=== PATIENT | male | born 1930 | race Caucasian/White ===

== ENCOUNTER 2016-08-18 19:55 | Inpatient (IN) | payer MEDICARE, MEDICAID, OTHER ==
[~2016-08-18] VITALS: Ht 172.7 cm; Wt 66.9 kg
--- NOTE | ~2016-08-18 | CON ---
PATIENT'S NAME: NATHALIE ESCALANTE [facility] AGE: 86 Y [address] ROOM: [place] [address] LOCATION: GPCU ADMIT DATE: 08/18/2016 Consultation DISCHARGE DATE: FAMILY PHYSICIAN: Kvng Heredia PA-C ATTENDING PHYSICIAN: GERHARD MCQUEEN DATE OF CONSULTATION: 08/19/[address] Mcqueen: Thank you for asking me to see Mr. Escalante who is an 86-year-old male patient, who had an accidental fall and fractured his left hip. He is supposed to on surgery for tumor today. He has no history of chest pain, shortness of breath, lightheadedness, dizziness, syncope or presyncope, palpitations, or ankle swelling. The patient has significant Parkinson disease and he lives at assisted living at [facility]. He walks with a walker and can walk at best half a block and rest with his walker. He has no other structured exercise program at this point. He has had a stent put in in 2001 and had a bypass grafting done in 2001 after that. The patient has history of tobacco abuse which he quit in the past, hypertension, hyperlipidemia, and no significant family history of premature coronary artery disease. He was told he had an OR, even though he was not aware of it. He has no history of rheumatic fever or heart murmur. He has never been told of congestive heart failure, but has history of atrial fibrillation. The patient has significant COPD and uses O2 2 L off and on. He does not have sleep apnea as far as he can tell. MEDICATIONS: His current list of medications are, 1. Tylenol. 2. Allopurinol. 3. Maalox. 4. Cepacol. 5. Calcium and vitamin D. 6. Diclofenac local topically. 7. Cymbalta 60 mg. 8. Lexapro 10 mg. 9. Fentanyl patch. 10. Flonase. PATIENT'S NAME: NATHALIE ESCALANTE [facility] AGE: 86 Y [address] ROOM: [place] [address] LOCATION: GPCU ADMIT DATE: 08/18/2016 Consultation DISCHARGE DATE: FAMILY PHYSICIAN: Kvng Heredia PA-C ATTENDING PHYSICIAN: GERHARD MCQUEEN 11. Guaifenesin. 12. Iron tablet. 13. Imodium. 14. Milk of magnesia. 15. Multivitamin. 16. Omeprazole 20 mg daily. 17. Zofran. 18. Oxygen 1-2 L. 19. Percocet. 20. Protonix. 21. Potassium. 22. Betadine. 23. Phenergan. 24. Ropinirole. 25. Senexon. 26. Silodosin. 27. Bactrim three days a week. 28. Triamcinolone. ALLERGIES: IODINE, CONTRAST, PREDNISONE, DOPAMINE, AND REGLAN. HE USED TO BE ON COUMADIN, IT HAS BEEN DISCONTINUED. PAST MEDICAL HISTORY: 1. COPD. 2. Gastroesophageal reflux disease. 3. Peptic ulcer disease. 4. Parkinson disease. 5. Gout. 6. DJD. SOCIAL HISTORY: The patient lives in assisted living facility. Denies abusing alcohol. He has been losing weight slowly. FAMILY HISTORY: No premature coronary artery disease. REVIEW OF SYSTEMS: A 12-point review of systems reveals fatigued and sleepiness are the only two other major symptoms he has. PHYSICAL EXAMINATION: VITAL SIGNS: On examination, his blood pressure now is 140/75, heart rate is 80s and appears to be regular at this time, respiration is 16. PATIENT'S NAME: NATHALIE ESCALANTE [facility] AGE: 86 Y [address] ROOM: [id number] [place] [id number] [facility] ADMIT DATE: 08/18/2016 Consultation DISCHARGE DATE: FAMILY PHYSICIAN: Kvng Heredia PA-C ATTENDING PHYSICIAN: GERHARD MCQUEEN HEENT: Normal. NECK: Supple with no JVD, thyromegaly, lymphadenopathy, or carotid bruit. PMI is not well located. First and second heart sounds fairly regular now. CHEST: Clear to auscultation. He has no edema. CENTRAL NERVOUS SYSTEM: Intact. ASSESSMENT: An 86-year-old male patient with known coronary artery disease status post coronary artery bypass grafting almost 15 years ago. He has a history of atrial fibrillation. Currently, his EKG suggests regular sinus rhythm with a heart rate in the 100s almost. He has no history of congestive heart failure. He is awaiting intermediate risk surgery with the risk of 4-7% chance of having significant morbidity and mortality. His risk is ennoble at this time because his functional capacity is less than 4 METS. Given the urgent nature of the surgery, I will discuss this with Dr. Hill and see what his plans are and if there is going to be a few days time available, we will do a stress test to stratify his risk better, even though correcting his risk as well as coronary artery disease concern back towards normal will considerably postpone his surgery which is probably not a good idea. MD ALANA WEBER/edwin /[id number] d: 08/19/16 1437 t: 08/28/16 1234, CONSULTATION REPORT
--- NOTE | ~2016-08-18 | CON ---
PATIENT'S NAME: NATHALIE BRENNAN [facility] AGE: 86 Y [address] ROOM: [place] [address] LOCATION: GPCU ADMIT DATE: 08/18/2016 Consultation DISCHARGE DATE: FAMILY PHYSICIAN: Kvng Heredia PA-C ATTENDING PHYSICIAN: GERHARD MCQUEEN Dr. has requested that I provide an inpatient consultation on this 86- year-old male, who was admitted through the emergency room last night with a left hip fracture. The patient's family requested that I care for him based upon the fact that I treated him for a contralateral hip fracture a few years ago. The patient resides at [facility]. His daughter is present. She is his power of front desk representative. He denies history of left hip pain prior to tripping and falling on his way to the bathroom last evening. At baseline, he spends most of his time in a wheelchair, but sometimes transfers without assistance (using a walker). He states he has no significant pain in his contralateral hip. The patient has been evaluated by Dr. Duncan (Cardiology). He was placed on an amiodarone drip. Dr. Duncan has emphasized the patient is at high cardiac risk (but that there are no modifiable cardiac risk factors in the short or intermediate term). PRESENT MEDICATIONS: 1. Imodium. 2. Calcium and vitamin D supplements. 3. Flonase. 4. Guaifenesin. 5. Rapaflo. 6. Prilosec. 7. Niferex. 8. Tylenol. 9. Nasal cannula oxygen. 10. Zofran. 11. Phenergan. 12. Requip. 13. Voltaren gel. 14. Lexapro. 15. Zyloprim. 16. Potassium supplement. 17. Bactrim. 18. Oxycodone. 19. Fentanyl patch. 20. Cymbalta. ALLERGIES: INTRAVENOUS CONTRAST DYE, PREDNISONE, DOPAMINE, AND REGLAN. PATIENT'S NAME: NATHALIE BRENNAN [facility] AGE: 86 Y [address] ROOM: [place] [address] LOCATION: GPCU ADMIT DATE: 08/18/2016 Consultation DISCHARGE DATE: FAMILY PHYSICIAN: Kvng Heredia PA-C ATTENDING PHYSICIAN: GERHARD MCQUEEN REVIEW OF SYSTEMS: He denies chest pain. There is no increased shortness of breath versus baseline. No history of deep venous thrombosis. He denies pain elsewhere as a result of the fall. ACTIVE MEDICAL PROBLEMS: Atrial fibrillation and extensive cardiac history (as specified in the Cardiology consultation note from Dr. Duncan). PAST SURGICAL HISTORY: Open reduction and internal fixation of right hip intertrochanteric fracture. PHYSICAL EXAMINATION: GENERAL: Alert, oriented, very slender, very frail, lethargic male. RESPIRATIONS: Nonlabored. MUSCULOSKELETAL: There is pain with passive range of motion of his left hip. There is no pain with passive range of motion of his right hip. There are no active skin lesions or masses in either lower extremity. He is able to actively dorsiflex and plantar flex the left ankle weekly. There is no pain with gentle passive range of motion of the right hip. RADIOGRAPHS: AP pelvis as well as AP and lateral radiographs of the left hip demonstrate a basicervical proximal femur fracture. There is a well-fixed gamma nail construct on the right (transfixing a healed intertrochanteric fracture). There is extensive calcification of the femoral arteries bilaterally. There is no hardware or lytic lesion in the left hip. There is significant generalized osteopenia. IMPRESSION: Left hip basicervical-intertrochanteric fracture. Healed right hip intertrochanteric fracture. Multiple medical comorbidities. Extremely frail compromised baseline medical status. intermediate patient. RECOMMENDATIONS: I have reviewed operative and nonoperative options with the patient and with his daughter. I had an extensive discussion with the patient's daughter by phone last evening. I discussed operative and nonoperative options. I have recommended open reduction and internal fixation. I have discussed potential risks and limitations of surgery as well as potential adverse sequelae of the injury itself. We have specifically discussed the potential for infection, deep venous thrombosis, pulmonary embolism, mortality, malunion, nonunion, neurovascular complications, blood transfusion risks, as well as the potential need for further surgery. The patient and his daughter are well-acquainted PATIENT'S NAME: NATHALIE BRENNAN [facility] AGE: 86 Y [address] ROOM: [place] [address] [facility] ADMIT DATE: 08/18/2016 Consultation DISCHARGE DATE: FAMILY PHYSICIAN: Kvng Heredia PA-C ATTENDING PHYSICIAN: GERHARD MCQUEEN with the issues at hand (having been through a virtually identical situation on the contralateral side). I emphasized to the patient's daughter that he is extremely frail (from a medical standpoint). I have shared with her that the bank consultant has stated that there is a 5% to 10% chance of mortality. She is willing to accept this risk. She understands his prognosis is extremely poor without surgery. Informed consent has been granted. The patient was placed at bedrest last evening. Mechanical DVT prophylaxis and incentive spirometry were initiated last evening (at my request). MD ARIA HERNANDEZ/edwin /[id number] d: 08/19/16 1805 t: 08/21/16 0753, CONSULTATION REPORT
--- NOTE | ~2016-08-18 | OR ---
PATIENT'S NAME: NATHALIE BRENNAN [facility] AGE: 86 Y [address] ROOM: [place] [address] LOCATION: GPCU ADMIT DATE: 08/18/2016 OR/Procedure Report DISCHARGE DATE: FAMILY PHYSICIAN: Kvng Heredia PA-C ATTENDING PHYSICIAN: GERHARD MCQUEEN SURGEON: Cb Hill MD BIT TRIPOLER: DATE OF PROCEDURE: 08/19/2016 PREOPERATIVE DIAGNOSIS: Intertrochanteric fracture left hip. POSTOPERATIVE DIAGNOSIS: Intertrochanteric fracture left hip. PROCEDURE PERFORMED: Open reduction and internal fixation of left hip intertrochanteric fracture with intramedullary device (gamma nail). SURGEON: Cb Hill MD ANESTHESIA: General endotracheal anesthesia. ESTIMATED BLOOD LOSS: 100 mL. IMPLANTS: 120-degree standard gamma nail 95 mm lag screw 40 mm distal interlocking screw proximal anti-rotational set screw DRAINS: None SPECIMEN: None COMPLICATIONS: None INDICATION FOR PROCEDURE: Please refer to my separately dictated consultation note. The patient presents with a left hip intertrochanteric fracture. Operative and nonoperative options have been reviewed. Potential adverse sequelae of the injury itself have been reviewed. Risks, benefits, limitations, and indications for surgery have been thoroughly reviewed and informed consent has been granted. We have specifically reviewed risks and implications of the following: infection, malunion, nonunion, deep venous thrombosis, pulmonary embolism, mortality, neurovascular complications, blood transfusion risks, decubitus ulcer formation, pneumonia, avascular necrosis, and the potential need for further surgery (including the potential need for salvage with hip hemiarthroplasty versus total hip arthroplasty). We have discussed the necessity for 2 months of restricted weightbearing PATIENT'S NAME: ANU [facility] AGE: 86 Y [address] ROOM: [place] [address] LOCATION: GPCU ADMIT DATE: 08/18/2016 OR/Procedure Report DISCHARGE DATE: FAMILY PHYSICIAN: Kvng Heredia PA-C ATTENDING PHYSICIAN: GERHARD MCQUEEN postoperatively. A preoperative internal medicine consultation has been obtained, and the patient has been medically cleared for surgery. DESCRIPTION OF PROCEDURE: The patient was positioned supine on the fracture table after administration of anesthesia and prophylactic antibiotics. The correct side and anticipated procedure were confirmed via a verbal timeout including myself, the heel packer, and the circulating nurse. A well-padded groin post was placed. Both feet and ankles were well padded. The right foot was placed into a stirrup-type leg isaac. The left foot was placed into a traction boot. Under fluoroscopic guidance, gentle longitudinal traction and internal rotation were applied across the fracture site through the left foot until a suitable reduction had been confirmed under AP and lateral fluoroscopic imaging. The lateral aspect of the left hip and thigh were scrubbed, prepped, and draped with vigilant sterile technique. The tip of the left greater trochanter was approached through a 5 cm direct lateral longitudinal incision. The iliotibial band was sharply divided longitudinally in line with the overlying skin incision. The tip of the left greater trochanter was palpated, and a cannulated awl was utilized to access the intramedullary canal of the proximal femur through the tip of the left greater trochanter. A ball tipped guidewire was placed through the awl and across the fracture site under fluoroscopic guidance, and the awl was subsequently removed. The cannulated entrance reamer was utilized through the appropriate soft tissue guide. The gamma nail was seated to the appropriate depth over the guidewire, and the guidewire was extracted. Fluoroscopic imaging confirmed appropriate position of the gamma nail. The outrigger guide and guide cannula were subsequently utilized to place a threaded-tipped guidewire centrally within the left femoral head and neck through a separate direct lateral 2 cm longitudinal incision. Appropriate position of the guidewire was confirmed under AP and lateral fluoroscopic imaging. Appropriate depth for the lag screw was measured. The cannulated reamer was set to the appropriate depth and fully seated through the appropriate soft tissue guide. The lag screw was seated to the appropriate depth under AP and lateral fluoroscopic guidance. The anti-rotational set screw was deployed. The outrigger guide and cannula were subsequently utilized to place the distal interlocking screw through a separate 5 mm direct lateral longitudinal incision. AP, lateral, and oblique fluoroscopic imaging of the left hip and left PATIENT'S NAME: NATHALIE BRENNAN [facility] AGE: 86 Y [address] ROOM: [address] [address] LOCATION: GPCU ADMIT DATE: 08/18/2016 OR/Procedure Report DISCHARGE DATE: FAMILY PHYSICIAN: Kvng Heredia PA-C ATTENDING PHYSICIAN: GERHARD MCQUEEN proximal femur confirmed appropriate position of all hardware and maintenance of an appropriate reduction of the fracture. Each of the 3 incisions was thoroughly irrigated with bacteriostatic saline lavage. The fascia was closed with simple deep interrupted 0 Vicryl sutures. Each of the incisions was closed with superficial buried interrupted 2-0 Vicryl sutures and surgical tiara. The dressings consisted of Xeroform gauze, sterile gauze, and occlusive tape. There were no complications. The patient was carefully transferred off the fracture table and transported to the postanesthesia care unit in stable condition. MD ARIA HERNANDEZ/edwin /[id number] d: 08/19/16 2305 t: 08/21/16 0756, OPERATIVE SUMMARY
--- NOTE | ~2016-08-18 | ECHO ---
Transthoracic Echocardiography Report (TTE) Demographics Patient Name NATHALIE BRENNAN Date of Study 08/19/2016 Patient Number [id number] Visit Number [id number] Date of 1930 Room Number G3211 Gender Male Number Age 86 year(s) Referring [place] Day Care Attendant Brit RVT, RDCS Physician CHARLI Ramires Physician Interpreting Perla Lees MD Farm Hand Physician Supervising Ordering Susannah Griggs MD, MD/MLP Physician Nurse Stress Loading Supervisor Conclusions Contractility Score Summary Normal Left Ventricular contractility was noted. Summary The estimated left ventricular ejection fraction is 60-65%.Mild concentric left ventricular hypertrophy.Normal EF despite moderate basal inferior hypokinesia. Trivial MR. There is mild aortic regurgitation by color Doppler. Mild tricuspid regurgitation by color Doppler.. There is mild pulmonary hypertension. The pulmonary pressure (RVSP) is 44 mmHg. Procedure Type of Study TTE procedure:2D Echocardiogram, M-Mode, Doppler , Color Doppler. Procedure Date Date: 08/19/2016 Start: 09:54 AM Study Location: Inpatient Portable Technical Quality: Adequate visualization Indications:Preop cardiac evaluation. Appropriate Use Criteria: 9 Patient Status: Routine HR: 88 bpm BP: 127/51 mmHg M-Mode/2D Measurements LV Diastolic Dimension: 3.76 cm LV Systolic Dimension: 2.63 cm LV Septum Diastolic: 1.28 cm LV PW Diastolic: 1.04 cm AO Root Dimension: 2.8 cm Cardiac Output: 6.21 l/min AV Cusp Separation: 1.7 cm RV Diastolic Dimension: 2.55 cm LA volume: 27 ml LVOT: 2.1 cm RV Base: 3.13 cm LVOT VTI: 20.4 cm RV Mid: 2.38 cm LV Stroke volume: 70.62 ml TAPSE: 1.25 cm TDI-S': 12.1 cm/s Doppler Measurements AV Peak Velocity: 1.4 m/s MV Peak E-Wave: 0.7 m/s AV Peak Gradient: 7.84 mmHg MV Peak A-Wave: 1.2 m/s AV Mean Gradient: 5 mmHg MV E/A Ratio: 0.58 LVOT Peak Velocity: 1 m/s MV P1/2t: 79 msec AV P1/2t: 1060 msec TR Gradient:40.96 mmHg PV Peak Velocity: 0.79 m/s Estimated RAP:3 mmHg PV Peak Gradient: 2.47 mmHg Estimated RVSP: 44 mmHg Estimated PASP: 43.96 mmHg E' Septal Velocity: 0.09 m/s A' Septal Velocity: 0.1 m/s E' Lateral Velocity: 0.12 m/s A' Lateral Velocity: 0.08 m/s Findings Left Ventricle Mild concentric left ventricular hypertrophy.Normal internal dimension and EF despite moderate basal inferior hypokinesia. Right Ventricle Normal right ventricle structure and function. Left Atrium Normal left atrial size. Right Atrium Normal right atrial size. Mitral Valve Trivial mitral regurgitation by color Doppler. Aortic Valve The aortic valve is mildly sclerotic. There is mild aortic regurgitation by color Doppler. Tricuspid Valve Mild tricuspid regurgitation by color Doppler.. There is mild pulmonary hypertension. The pulmonary pressure (RVSP) is 44 mmHg. Pulmonic Valve Normal pulmonic valve structure and function. Pericardial Effusion No evidence of pericardial effusion. Miscellaneous Visualized portions of the aortic root and ascending aorta appear normal in size. Pleural Effusion No evidence of pleural effusion. Contractility Score LV regional wall motion:(0-Non visualized 1-Normal 2-Hypokinesis 3-Akinesis 4-Dyskinesis 5-Aneurysm) Signature dtt: Yoana Duncan dtd: 08/19/16 0954 Physician Self Edit
--- NOTE | ~2016-08-18 | HP ---
PATIENT'S NAME: NATHALIE BRENNAN [facility] AGE: 86 Y [address] ROOM: [id number] [place], [place] [address] LOCATION: [facility] ADMIT DATE: 08/18/2016 History & Physical DISCHARGE DATE: FAMILY PHYSICIAN: Kvng Heredia PA-C ATTENDING PHYSICIAN: GERHARD MCQUEEN DATE OF SERVICE: CHIEF COMPLAINT: Left hip pain, status post mechanical fall. HISTORY OF PRESENT ILLNESS: This is an 86-year-old male who says that he lives alone in an assisted living and when he was trying to walk into the bathroom at home, he accidentally tripped when he tangled his legs and he fell on the ground landing on his left hip. He denies any loss of consciousness. There was no head trauma. Right after the fall, he could not get up because of the pain in the left hip. Therefore, he asked for help and he was brought here to our hospital for evaluation. Here, the patient with the hip x-ray showed left hip femur fracture. Official report is pending. Prior to the fall, the patient denies any chest pain, shortness of breath, palpitation, dizziness, or blurry vision. He says that simply it was purely a mechanical fall when he accidentally tripped and fell. At baseline, the patient has METS score more than 4 and he says that he denies any chest pain or shortness of breath at rest or on exertion, but he has noticed that occasionally and recently he has also been feeling some shortness of breath with exertion lately. He denies any chest pain at all. The patient has significant cardiac history in the past including paroxysmal atrial fibrillation, not on long-term anticoagulation due to fall risk as well as history of coronary artery disease, status post bypass surgery in 2001 and prior to that, he also had 1 cardiac stent placed before year 2001. 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 Jaramillo, and according to the patient, the patient already has a stress test ordered by Dr. Jaramillo at [facility] on August 20, 2016, as part of the preoperative clearance for the elective bilateral inguinal hernia surgical repair. Currently, the only complaint the patient has is left hip pain, but he was also noticed to be hypoxic on room air down to 85%. He was a heavy smoker in the past and according to the patient, he used to smoke about 3-4 packs per day for more than 20 years according to the patient. He quit in 1989. He uses oxygen at detention around 2 L on and off. At baseline, he occasionally coughs, sometimes it is dry, sometimes it is productive, and he says that usually on a daily basis. Currently, he denies any chest pain or any shortness of breath PATIENT'S NAME: NATHALIE BRENNAN [facility] AGE: 86 Y [address] ROOM: [place] [address] LOCATION: [facility] ADMIT DATE: 08/18/2016 History & Physical DISCHARGE DATE: FAMILY PHYSICIAN: Kvng Heredia PA-C ATTENDING PHYSICIAN: GERHARD MCQUEEN at rest. REVIEW OF SYSTEMS: As mentioned in the history of present illness. All other systems reviewed and negative except those mentioned in the history of present illness. PAST MEDICAL HISTORY: 1. Coronary artery disease, status post CABG in 2001 and prior to the year 2001, the patient had one cardiac stent placed. 2. Gastroesophageal reflux disease. 3. History of peptic ulcer disease in the past. 4. Parkinson disease. 5. Gout. 6. Hypertension. 7. Osteoarthritis. 8. Emphysema and probably also has a chronic bronchitis. 9. Bilateral inguinal hernia, currently not incarcerated, but asymptomatic on palpation. 10. History of paroxysmal atrial fibrillation. ALLERGIES: THE PATIENT IS ALLERGIC TO IODINE CONTRAST, WHICH CAUSES SYNCOPE. PREDNISONE ALSO CAUSES SYNCOPE AND DOPAMINE AND REGLAN ALSO CAUSES SYNCOPE. HE WAS ON ANTICOAGULATION MEDICATION; HOWEVER, IT WAS STOPPED. THE PATIENT DID NOT KNOW WHY, BUT HE IS ALSO AT HIGH RISK OF FALL. HOME MEDICATIONS: 1. Tylenol 650 mg p.o. daily p.r.n. for pain or fever. 2. Allopurinol 100 mg p.o. daily. 3. Maalox 30 mL p.o. every 6 hours p.r.n. for indigestion. 4. Cepacol 1 application p.o. every 2 hours p.r.n. for cough. 5. Calcium and vitamin D combination 500 mg p.o. daily. 6. Diclofenac 1% gel one application topically b.i.d. 7. Cymbalta 60 mg p.o. every night at bedtime. 8. Lexapro 10 mg p.o. daily. 9. Fentanyl patch 12 mcg topical every 72 hours. 10. Flonase 50 mcg p.o. daily p.r.n. for nasal allergy. 11. Guaifenesin 1200 mg p.o. b.i.d. 12. Iron polysaccharide 65 mg p.o. daily. 13. Imodium 1 capsule p.o. 4 times daily p.r.n. for diarrhea. 14. Milk of magnesia 30 mL p.o. daily p.r.n. for constipation. 15. Multivitamin 1 tablet p.o. daily. 16. Omeprazole 20 mg p.o. daily. 17. Zofran 4 mg p.o. t.i.d. 18. Oxygen 1-2 L nasal cannula at bedtime. PATIENT'S NAME: NATHALIE BRENNAN [facility] AGE: 86 Y [address] ROOM: [place] [address] LOCATION: [facility] ADMIT DATE: 08/18/2016 History & Physical DISCHARGE DATE: FAMILY PHYSICIAN: Kvng Heredia PA-C ATTENDING PHYSICIAN: GERHARD MCQUEEN 19. Percocet 5/325 mg 1 tablet p.o. every night at bedtime. 20. Percocet 1 tablet p.o. every 4 hours p.r.n. for pain. 21. Protonix 40 mg p.o. daily. 22. Potassium chloride 40 mEq p.o. daily. 23. Betadine 1 application topical every day to the left foot. 24. Phenergan 12.5 mg p.o. every 6 hours p.r.n. for nausea. 25. Ropinirole 2 mg p.o. t.i.d. 26. Senexon one tablet p.o. b.i.d. 27. Silodosin 8 mg p.o. daily. 28. Sodium chloride nasal spray one spray each nose every 2 hours p.r.n. for nasal congestion. 29. Bactrim 400/80 mg 1 tablet p.o. b.i.d. on Saturday, Saturday, and Fridays. 30. Triamcinolone 1 application 0.5% cream 1 application topically every night at bedtime. PHYSICAL EXAMINATION: RESPIRATORY: Decreased breath sounds diffusely with minimal bibasilar crackles. EXTREMITIES: Dorsalis pedis pulses and posterior tibialis pulse is palpable and also audible on Doppler. NEUROLOGICAL: Sensation intact. Muscle strength not examined in the left lower extremity due to the hip fracture. Otherwise, all other 3 extremities are with intact muscle strength. Otherwise, unremarkable. LABORATORY DATA: Troponin less than 0.04. CPK 180, CK-MB 11.8. White blood cells 4.4, hemoglobin 11.9, hematocrit 37.2, MCV 97.4, platelets 111, glucose 138, BUN 16, creatinine 0.9. Sodium 144, potassium 4.3, chloride 107, CO2 29, calcium 8.7, total protein 6.1, albumin 3.3, AST 28, ALT 26, alkaline phosphatase 81, total bilirubin 0.4, magnesium 1.9. Anion gap 12.3, GFR more than 60. INR 1.0, PTT 28. Urinalysis: 25 leukocytes, 2-5 white blood cells, rare bacteria, negative nitrite. Prealbumin 16. IMAGING STUDY: EKG on admission showed atrial fibrillation with RVR, heart rate in the 100 beats per minutes with a QRS of 141 milliseconds, QTc 426 milliseconds. Right bundle branch block. Chest x-ray on admission, the official reading is pending. Based on my review, no obvious effusion. X-ray of the hip, official reading is pending. Based on the verbal report given to me by the ER physician, left hip femur fracture. PATIENT'S NAME: NATHALIE BRENNAN [facility] AGE: 86 Y [address] ROOM: [address] [address] LOCATION: [facility] ADMIT DATE: 08/18/2016 History & Physical DISCHARGE DATE: FAMILY PHYSICIAN: Kvng Heredia PA-C ATTENDING PHYSICIAN: GERHARD MCQUEEN ASSESSMENT AND PLAN: 1. Regarding his left hip femur fracture, status post mechanical fall: Per Orthopedic Surgery. Pain control and deep vein thrombosis prophylaxis per Orthopedic Surgery. 2. Regarding his preoperative medical clearance for orthopedic surgery to fix the left hip femur fracture: Currently, the patient is not medically clear given that the patient presented with atrial fibrillation with rapid ventricular response and also the patient already has a scheduled stress test on August 20, 2016, by his primary other wood processing machine operator, Dr. Jaramillo, according to the patient as a preoperative clearance for his upcoming elective bilateral inguinal hernia surgical repair. The patient also has cardiac history of coronary artery disease, status post CABG, and also one drug-eluting stent placed in the past back in 2001. I will be checking cardiac enzymes and also proBNP and also continue telemetry monitoring and I will get a transthoracic echo in the morning and also put a Cardiology consult in the morning for cardiac clearance for Orthopedic Surgery. Further plan depends on clinical course. Pain control will be with narcotics prn with holding parameters. All the medications are p.r.n. and with holding parameters. The patient is in great deal of pain and that could be the cause of the atrial fibrillation with rapid ventricular response; however, given the patient does have a history of coronary artery disease requiring stents and CABG in the past and already has a scheduled stress test next week. Therefore, I am going to get a transthoracic echo in the morning looking for any valvulopathy, ejection fraction, motion abnormality, and also get a Cardiology clearance for orthopedic surgery. 3. Regarding his history of coronary artery disease, status post CABG and stents placed in the past: As mentioned above. 4. Regarding his gastroesophageal reflux disease and prior history of peptic ulcer disease: We will continue home medication with Prilosec 20 mg p.o. daily. 5. Regarding his emphysema: The patient is found to be hypoxic on room air 85% and his lungs are very decreased in breath sounds due to his emphysema. The patient is not wheezing, but he is requiring 2 L oxygen to achieve saturation of 92%. At detention, he uses 2 L at night. He is now wheezing. The plan will be to give him nebulization with Xopenex plus Atrovent every 6 hours for 48 hours and then titrate by RT and also gave him Atrovent nebulization q.2 hours p.r.n. titrate by RT. Continue oxygen nasal cannula to titrate to keep saturation more than 90%. 6. Regarding his hypertension: Currently, the home medication is being reconciled. Once the list is ready, it will be addressed. 7. Deep vein thrombosis prophylaxis: Per Orthopedic Surgery. PATIENT'S NAME: NATHALIE BRENNAN [facility] AGE: 86 Y [address] ROOM: [place] [id number] LOCATION: [facility] ADMIT DATE: 08/18/2016 History & Physical DISCHARGE DATE: FAMILY PHYSICIAN: Kvng Heredia PA-C ATTENDING PHYSICIAN: GERHARD MCQUEEN Time spent in care on the day of admission is 40 minutes including chart review, interviewing, and examining the patient, addressing all the questions and concerns the patient had, and going over the plan of care with the patient and the nurse. MD ALCIRA CHEN/edwin /[id number] D: [id number] T: [id number] HISTORY & PHYSICAL
--- NOTE | ~2016-08-18 | DS ---
PATIENT'S NAME: NATHALIE BRENNAN [facility] AGE: 86 Y [address] ROOM: [place] [address] LOCATION: [facility] ADMIT DATE: 08/18/2016 Discharge Summary DISCHARGE DATE: 08/23/2016 FAMILY PHYSICIAN: Kvng Heredia PA-C ATTENDING PHYSICIAN: Jose Davalos PRIMARY DIAGNOSES: 1. Left hip fracture after a mechanical fall. 2. Paroxysmal atrial fibrillation with rapid ventricular response. 3. Coronary artery disease, status post coronary artery bypass grafting. 4. Parkinson disease. 5. Gastroesophageal reflux disease with history of peptic ulcer disease. 6. Essential hypertension. 7. 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 8. Osteoarthritis, generalized. 9. Iron-deficiency anemia. OPERATIONS AND PROCEDURES: Open reduction and internal fixation of the left hip was performed on 08/19/[address] Hill. Echocardiogram was performed on 08/19/[address] Duncan demonstrating an ejection fraction of 60-65% and an elevated RVSP at 44 mmHg. HISTORY OF PRESENTING ILLNESS AND REASON FOR ADMISSION: Please refer to the H and P dictated on 08/18/[address] Davalos. HOSPITAL COURSE: The patient was admitted to the hospital as noted above with a presumptive diagnosis of left hip fracture after a mechanical fall. He was seen and evaluated by Orthopedic Surgery as well as the Hospitalist Team. He was felt to have some increased cardiac risk preoperatively. Cardiology did provide preoperative clearance. Postoperatively, he developed atrial fibrillation with rapid ventricular response and was transferred to the progressive care floor. He was treated with amiodarone and his atrial fibrillation resolved and he became rate controlled. He was subsequently transferred back to the Orthopedics floor. His clinical progress was slow. He did receive physical therapy, occupational therapy, as well as supportive and restorative cares. He did have some mild urinary retention and planned discharge for 08/22 was held. On 08/23/2016, it was felt he would be stable enough for discharge to [facility] with continued restorative care including physical therapy, occupational therapy, and nursing care. DISCHARGE INSTRUCTIONS: Diet: Cardiac prudent as tolerated. PATIENT'S NAME: NATHALIE BRENNAN [facility] AGE: 86 Y [address] ROOM: [place] [address] LOCATION: [facility] ADMIT DATE: 08/18/2016 Discharge Summary DISCHARGE DATE: 08/23/2016 FAMILY PHYSICIAN: Kvng Heredia PA-C ATTENDING PHYSICIAN: Jose Davalos Activity: As tolerated on physical therapy and occupational therapy. MEDICATIONS: 1. Acetaminophen 650 mg p.o. q.4 hours p.r.n., pain or fever. 2. Allopurinol 100 mg p.o. daily. 3. Milk of magnesia 30 mL p.o. daily p.r.n., constipation. 4. Cepacol sore throat lozenges p.r.n. 5. Calcium with vitamin D 500 mg p.o. daily. 6. Voltaren gel 1% apply topically b.i.d. p.r.n. 7. Cymbalta 60 mg p.o. q.h.s. 8. Lexapro 10 mg p.o. daily. 9. Fentanyl patch 12 mcg, apply topically every 72 hours. 10. Iron 325 mg p.o. daily. 11. Flonase nasal spray 2 sprays each nostril b.i.d. 12. Guaifenesin 600 mg 2 tabs p.o. b.i.d. 13. Imodium 2 mg p.o. q.i.d. p.r.n. diarrhea. 14. Milk of magnesia 30 mL p.o. daily p.r.n. 15. Multivitamin daily. 16. Omeprazole 20 mg p.o. daily. 17. Zofran 4 mg p.o. q.a.c. p.r.n., nausea. 18. Percocet 5/325 one tablet p.o. q.4 hours p.r.n., pain and 1 tab at h.s. scheduled. 19. Oxygen 2 L per nasal cannula continuously. 20. Protonix 40 mg p.o. daily. 21. Potassium 40 mEq p.o. daily. 22. Betadine, apply topically daily. 23. Promethazine 12.5 mg p.o. q.6 hours p.r.n., nausea. 24. Ropinirole 2 mg p.o. t.i.d. 25. Senna and DSS 1 tablet p.o. b.i.d. 26. Rapaflo 8 mg p.o. daily. 27. Saline nasal spray 1 spray each nostril p.r.n. 28. Bactrim 1 tablet p.o. b.i.d. on Saturday, Saturday, Saturday. 29. Triamcinolone cream, apply topically at h.s. FOLLOWUP: He will have a followup with primary care provider at [facility] in 7 to 10 days. Follow up with Dr. Hill in 1-2 months. CONDITION ON DISCHARGE: Fair. Total time spent on discharge process 35 minutes. KIP MARTINZE MD PATIENT'S NAME: NATHALIE BRENNAN [facility] AGE: 86 Y [address] ROOM: [place] [address] LOCATION: [facility] ADMIT DATE: 08/18/2016 Discharge Summary DISCHARGE DATE: 08/23/2016 FAMILY PHYSICIAN: Kvng Heredia PA-C ATTENDING PHYSICIAN: Jose Davalos/edwin /[id number] d: 08/24/[id number] t: 09/05/16 2144, DISCHARGE SUMMARY
--- NOTE | ~2016-08-18 | ER ---
PATIENT'S NAME: NATHALIE BRENNAN [facility] AGE: 86 Y [address] ROOM: [place] [address] [place] [facility] [place]: 08/18/2016 ER/Outpatient Report DISCHARGE DATE: FAMILY PHYSICIAN: Kvng Heredia PA-C ATTENDING PHYSICIAN: GERHARD MCQUEEN Time Seen: 2010 hours. CHIEF COMPLAINT: Left hip pain. HISTORY OF PRESENT ILLNESS: The patient is an 86-year-old jail patient, was brought in by ambulance from [place]. The patient evidently was walking and tripped and fell. He presents with severe pain to his left hip. The patient has been unable to bear weight since the fall. ALLERGIES: SEE COPIED LIST. CURRENT MEDICATIONS: See copied list from his jail. PAST MEDICAL HISTORY: Does include Parkinson's, hypertension, hyperlipidemia, degenerative arthritis. SURGERIES: Include a right hip pin[place] [address] Hill. SOCIAL HISTORY: Resides in a jail in [place]. Nonsmoker. No recent alcohol. REVIEW OF SYSTEMS: Obtained from the patient. GENERAL: He denied any recent illnesses or fever. HEAD/EENT: No complaints of headache or neck pain. RESPIRATORY: Denies any significant shortness of breath or cough. CARDIOVASCULAR: No chest pain. No heart palpitations. GASTROINTESTINAL: No vomiting or diarrhea. GENITOURINARY: No incontinence. MUSCULOSKELETAL: Includes severe pain in his left hip which has required fentanyl on the way to the hospital and also Dilaudid here in the emergency room. PATIENT'S NAME: NATHALIE BRENNAN [facility] AGE: 86 Y [address] ROOM: [place] [address] [place] [facility] [place]: 08/18/2016 ER/Outpatient Report DISCHARGE DATE: FAMILY PHYSICIAN: Kvng Heredia PA-C ATTENDING PHYSICIAN: GERHARD MCQUEEN PHYSICAL EXAMINATION: VITAL SIGNS: His respiratory rate was 16, pulse 95, blood pressure 159/76, O2 sats were 91% on room air. GENERAL APPEARANCE: White male. He appeared oriented. HEENT: Head, some mild temporal wasting, otherwise, no noted trauma. Eyes, PERRL. Sclerae are clear. Nose, septum midline. Mouth, oral membranes were moist. NECK: No cervical adenopathy. ABDOMEN: Appeared soft, nontender. LUNGS: Clear at the base. HEART: Tones were distant. EXTREMITIES: Had both knees kind of flexed, maybe quite tender to movement, especially of the left hip. GENITOURINARY: Denies any urinary incontinence. MUSCULOSKELETAL: Severe pain to his left hip. SKIN: He had a couple open sores on his dorsal left foot third and fourth toe. LABORATORY DATA AND X-RAYS: X-rays of his left hip show what appeared to be a low femoral neck fracture. Chest x-ray shows a previous open heart surgery, right diaphragm appeared slightly elevated. Lab work: CMS; glucose is elevated at 138. CBC; white count is 4.4, his hemoglobin is 11.9. EKG did show sinus tach, left axis deviation, probable right bundle branch. ASSESSMENT: 1. Left low femoral neck fracture. 2. Previous history of right hip fracture. 3. History of Parkinson's. 4. Coronary artery disease. 5. Hypertension. PLAN: The patient will be admitted by the Hospitalist Service. Dr. Hill was contacted and consulted. EMERGENCY DEPARTMENT COURSE: During treatment in the emergency room, he was given a total of 150 of fentanyl, which he continued to have severe pain, he was then given 0.5 of Dilaudid which was repeated x1. The patient remained stable here in the emergency room. PATIENT'S NAME: NATHALIE BRENNAN [facility] AGE: 86 Y [address] ROOM: [place] [address] [place] [facility] [place]: 08/18/2016 ER/Outpatient Report DISCHARGE DATE: FAMILY PHYSICIAN: Kvng Heredia PA-C ATTENDING PHYSICIAN: GERHARD MCQUEEN CHARLI SOLER FOR MD IRVING GREWAL/edwin /[id number] d: 08/19/16 0254 t: 08/29/16 0613, OUTPATIENT REPORT
[~2016-08-18 19:55] MED LIST changes: -BACTRIM 400-801 EACH PO; -BETADINE1 EACH TOP; -CYMBALTA60 MG PO; -DURAGESIC1 EAC1 TOP; -K-TAB ER20 MEQ PO; -LEXAPRO10 MG PO; -MILK OF MA400 MG/5 M PO; -OXYGEN INH; -PERCOCET 5-3251 EACH PO; -PROTONIX40 MG PO; -REQUIP2 MG PO; -SALINE NASAL SP88 ML NOSE; -SM SENNA-S TAB1 EACH PO; -VOLTAREN 1% GE100 GM TOP; -ZYLOPRIM100 MG PO
[2016-08-18 21:57] LABS: BASOPHIL % 0.5 %; EOSINOPHIL % 0.7 %; HEMATOCRIT 37.2 % (33.0-50.0); HEMOGLOBIN 11.9 g/dL (11.0-16.0); IMMATURE GRANULOCYTE # 0.1 K/uL (0.0-0.3); IMMATURE GRANULOCYTE % 1.6 %; LYMPHOCYTE # 0.6 K/uL (0.8-4.0); LYMPHOCYTE % 13.8 %; MCH 31.2 pg (27.0-34.0); MCV 97.4 fl (83.0-98.0); MONOCYTE # 0.4 K/uL (0.0-1.0); MONOCYTE % 9.2 %; MPV 10.6 fl (9.4-12.4); NEUTROPHIL # (ANC) 3.2 K/uL (1.4-9.0); NEUTROPHIL % 74.2 %; NRBC % 0 /100WBC (0-0.00); PLATELET COUNT 111 K/uL (150-450); RBC 3.82 M/uL (3.50-5.50); RDW-CV 13.2 % (11.9-14.6); WBC 4.4 K/uL (4.0-11.0)
[2016-08-18 22:13] LABS: ALBUMIN 3.3 gm/dL (3.5-5.0); ALK PHOS 81 IU/L (33-138); ALT 26 IU/L (12-78); ANION GAP 12.3 (10.0-19.0); AST 28 IU/L (10-40); BLOOD UREA NITROGEN 16 mg/dL (6-24); CALCIUM 8.7 mg/dL (8.5-10.5); CHLORIDE 107 mMol/L (96-110); CO2 29 mMol/L (22-32); CREATININE 0.9 mg/dL (0.6-1.3); ESTIMATED GFR (MDRD EQUATION) > 60; POTASSIUM 4.3 mMol/L (3.7-5.1); SODIUM 144 mMol/L (135-145); TOTAL BILIRUBIN 0.4 mg/dL (0.0-1.5); TOTAL PROTEIN 6.1 g/dL (6.0-8.4)
[2016-08-18 22:28] LABS: PROTIME 10.8 SECONDS (9.6-11.1)
[2016-08-18 22:34] LABS: BILIRUBIN URINE NEGATIVE (NEGATIVE); BLOOD URINE 10 /UL (NEGATIVE); GLUCOSE URINE NEGATIVE (NEGATIVE); KETONE URINE NEGATIVE (NEGATIVE); LEUKOCYTES URINE 25 /UL (NEGATIVE); NITRITE URINE NEGATIVE (NEGATIVE); PROTEIN URINE NEGATIVE (NEGATIVE); UROBILINOGEN URINE NORMAL (NORMAL)
[2016-08-18 22:35] LABS: CPK 180 IU/L (35-332); MAGNESIUM 1.9 mg/dL (1.3-2.6)
[2016-08-18 22:39] LABS: COLOR URINE YELLOW (YELLOW); TURBIDITY URINE CLEAR (CLEAR)
[2016-08-18 22:47] LABS: BACTERIA URINE RARE (NEGATIVE); EPITHELIAL URINE 0-2 #/HPF (NEGATIVE); RBC URINE 0-2 #/HPF (NEGATIVE)
[2016-08-18] MEDS ORDERED: OXYGEN INH (23:32)
[2016-08-18] MEDS ORDERED: BETADINE1 EACH TOP (23:37)
[2016-08-18] MEDS ORDERED: REQUIP2 MG PO (23:38)
[2016-08-18] MEDS ORDERED: SM SENNA-S TAB1 EACH PO (23:39)
[2016-08-18] MEDS ORDERED: VOLTAREN 1% GE100 GM TOP (23:49)
[2016-08-18] MEDS ORDERED: LEXAPRO10 MG PO (23:51)
[2016-08-18] MEDS ORDERED: ZYLOPRIM100 MG PO (23:56)
[2016-08-18] MEDS ORDERED: K-TAB ER20 MEQ PO (23:58)
[2016-08-18] MEDS ORDERED: PROTONIX40 MG PO (23:59)
[2016-08-19] MEDS ORDERED: BACTRIM 400-801 EACH PO (00:12)
[2016-08-19] MEDS ORDERED: PERCOCET 5-3251 EACH PO ×2 (00:13→00:14)
[2016-08-19] MEDS ORDERED: DURAGESIC1 EAC1 TOP (00:52)
[2016-08-19] MEDS ORDERED: CYMBALTA60 MG PO (00:53)
[2016-08-19] MEDS ORDERED: MAALOX LIQ UNIT30 ML PO (00:54)
[2016-08-19] MEDS ORDERED: SALINE NASAL SP88 ML NOSE (00:54)
[2016-08-19] MEDS ORDERED: MILK OF MA400 MG/5 M PO (00:55)
--- NOTE | 2016-08-19 01:57 | NUR ---
Patient admitted to [facility] around 2314. Fell at group home in [place]. Daughter is POA. Refusing flu shot, and up to date on pneumonia. PNeumatics on. Heels off bed. Uses home oxygen. Allergies to prednisone, reglan, dopamine. History of R) hip fracture, falls, head trauma from falls, V/P shunt, [place], CABG in 2011, high cholesterol, HTN, [place], stent. Has arthritis, history of rib fx, osteoperosis, GERD, diveritulits, nocturia, eczema, anxiety, enlarged prostate, thyroid disease.
--- NOTE | 2016-08-19 04:49 | NUR ---
Significant Event: Patient alert and oriented X3. Bedrest. Mumbles and is hard to understand, but pleasant. Villar placed. Reposition every 2 hours. Encourage IS, patient having trouble getting above 500 on IS. States he is weak. IV to R) hand running D5NS at 80/ml. Gave 1gm magnesuim. NPO since midnight. Gave IV morphine last at 0445. Going to be seen by cardio and have Echo this am before surgery. Dr. Hill doing surgery. Family aware. Several sores on L) foot, rash to L) calf. Ice to hip per ortho nurse on floor. On 3 liters oxygen. Follow up:
[2016-08-19 06:03] LABS: CPK 178 IU/L (35-332)
--- NOTE | 2016-08-19 12:56 | NUR ---
Significant Event:Patient fell at [facility] fx left hip. LS crackles in the bases. O2 3L sats 91%. abd soft active bowel tones. Patient states he has been getting chemo, cant recall the cancer type or where. Morphine at 0700, Tylenol ES and Fentanyl at 0820. Villar patent. Patient had echo and ekg shows Afib. Transfer to PCU for Amiodarone gtt.
--- NOTE | 2016-08-19 19:47 | NUR ---
Significant Event: AOx3, SBP 130s-170s. Transferred from [facility] this a.m. for amiodarone d/t afib with RVR. Amiodarone started just prior to going down for surgery for L) hip fx. Dressing to hip is C/D/I. Patient given 2 percocet and morphine for pain with relief noted. Rates currently controlled and amiodarone d/c'd per Dr Velazco. Fluids running to R) hand IV without complication. SL to L) FA as well. Hip precautions maintained. Pleasant and cooperative with cares. Follow up: Per plan of care.
[2016-08-20 04:21] LABS: HEMOGLOBIN 8.2 g/dL (11.0-16.0); MPV 10.9 fl (9.4-12.4); RDW-CV 13.6 % (11.9-14.6); WBC 3.1 K/uL (4.0-11.0)
[2016-08-20 04:23] LABS: HEMATOCRIT 25.8 % (33.0-50.0); MCH 30.8 pg (27.0-34.0); MCHC 31.8 gm/dL (32.0-36.5); PLATELET COUNT 69 K/uL (150-450); RBC 2.66 M/uL (3.50-5.50)
[2016-08-20 04:37] LABS: ANION GAP 10.8 (10.0-19.0); BLOOD UREA NITROGEN 12 mg/dL (6-24); CALCIUM 7.7 mg/dL (8.5-10.5); CHLORIDE 110 mMol/L (96-110); CO2 25 mMol/L (22-32); CREATININE 0.6 mg/dL (0.6-1.3); ESTIMATED GFR (MDRD EQUATION) > 60; POTASSIUM 3.8 mMol/L (3.7-5.1); SODIUM 142 mMol/L (135-145)
[2016-08-20 06:15] LABS: ABSOLUTE NEUTROPHIL CT (ANC) 2.5 K/uL (1.4-9.0); BANDED NEUTROPHIL # 0.9 K/uL (0.0-0.1); BANDED NEUTROPHILS % 29 %; LYMPHOCYTE # 0.2 K/uL (0.8-4.0); LYMPHOCYTE % 8 %; MONOCYTE # 0.2 K/uL (0.0-1.0); SEGMENTED NEUTROPHIL # 1.6 K/uL (1.4-9.0); SEGMENTED NEUTROPHIL % 53 %
--- NOTE | 2016-08-20 08:25 | NUR ---
Significant Event: REMAINS IN BED ALL NIGHT. HR REMAINS STABLE IN NSR. BP STABLE ALL NIGHT. ONLY C/O PAIN WHEN MOVED. 1 DOSE NORCO GIVEN. CUBA REMAINS PATENT. REMAINS A&O X3. NEURO CHECKS TO THE L) HIP INTACT. Follow up:
--- NOTE | 2016-08-20 15:16 | NUR ---
I did call Clare Bernardo because the pt was sleeping and no family in the room. I did talk with Radha and [facility] and she did get a call from Zack and the plans are yes to returning back when ready. I did give Radha update. WIll continue to follow.
--- NOTE | 2016-08-20 18:58 | NUR ---
Significant Event: Alert & oriented, drowsy, speech muffled, movements slow. VSS, afebrile, on 3L O2 (2L home dose). Villar. Poor appetite. Refused calf pumps due to burning foot pain. Chronic numbess/tingling bilateral feet. CSM WNL. Mepilex x3, CDI.
--- NOTE | 2016-08-20 19:36 | NUR ---
Significant Event: AOx3, sleepy but rouses to voice. SBP 97-104, tachypneic at times. Requires 3 L to maintain sats >90%. In and out of Afib/SR. Villar patent, draining yellow urine. Dressings to L) hip C/D/I. Up to chair with 3PA heavy assist. Unable to follow toe touch instructions, unable to move R) foot forward, 3 people had to lift, pivot, and position him to chair. Very slow movements d/t Parkinson's. Requires pudding & sips with pills. Transferred to [address] [place] [id number] per orders. Report given to Asa. Follow up: Per ortho plan of care.
--- NOTE | 2016-08-21 03:02 | NUR ---
Significant Event: A/O X 3, FORGETS. IV SALINE LOCK INTCT. ROMMEL HOSE OFF, BILATERAL CALF PNEUMATICS ON. C/O BURNING SENSATION TO BILATERAL FEET. HAS NUMB-TINGLING TO BILATERAL FEET TOES FROM CHEMO TX. 02 SATS STAYED ABOVE 90% ON 3L. USES 2L AT HOME OF O2. DRGS DRY-INTACT LEFT HIP. TAKES FLUIDS OFFERED. BITES OF EVENING MEAL TAKEN. NOT MUCH APPETITE. HEAVY 2 PERSON ASSIST. PATIENT IS 50% WT BEARING LT LEG. HIP PRECAUTION MAINTAINED. Follow up:
[2016-08-21 04:39] LABS: HEMATOCRIT 23.6 % (33.0-50.0); MCV 97.1 fl (83.0-98.0); MPV 10.6 fl (9.4-12.4); RBC 2.43 M/uL (3.50-5.50); RDW-CV 13.5 % (11.9-14.6); WBC 2.9 K/uL (4.0-11.0)
[2016-08-21 04:49] LABS: HEMOGLOBIN 7.6 g/dL (11.0-16.0); MCH 31.3 pg (27.0-34.0); MCHC 32.2 gm/dL (32.0-36.5); PLATELET COUNT 57 K/uL (150-450)
[2016-08-21 06:06] LABS: ABSOLUTE NEUTROPHIL CT (ANC) 2.2 K/uL (1.4-9.0); BANDED NEUTROPHILS % 34 %; LYMPHOCYTE # 0.5 K/uL (0.8-4.0); LYMPHOCYTE % 17 %; MONOCYTE # 0.1 K/uL (0.0-1.0); SEGMENTED NEUTROPHIL # 1.2 K/uL (1.4-9.0); SEGMENTED NEUTROPHIL % 40 %
--- NOTE | 2016-08-21 16:25 | NUR ---
Called [facility] at [phone]. and talked to charge nurse about pt. Told her I was going to fax over updates on him and asked about her knowledge about him coming back there after discharge. She stated they are expecting him to come back after medically cleared. Will call back tomorrow morning to assess plan to get him back there. Plan to discharge tomorrow or depending on pt's health. Will continue to follow and assist with CM Liliane. CM Spa Manager/Esthetician [id number] Faxed over information at [phone]
--- NOTE | 2016-08-21 19:07 | NUR ---
Significant Event: TRANSFER TO RECLINER WITH 2-3 ASSIST, TRANSFERS POOR. CSM ADQUIT IN FEET, TAKES MEDS WHOLE WITH WATER, HGB 7.9 STARTED 1 UNIT BLOOD THIS AFTERNOON. HAD 400 ML OUT CUBA, HAD NORCO 1 TAB AT 1540.... Follow up:
--- NOTE | 2016-08-22 03:33 | NUR ---
Significant Event: Dressing is clean, dry and intact. Numbness and tingling to bilateral toes, patient states that this is not new. Full lift. Has a ag catheter. [place] at 0102. Repositioned. On 3 L of oxygen nasal cannula. 50% WB to L) leg. Finished 1 unit of blood at the beginning of the shift. Encourage incentive spirometer. Follow up:
[2016-08-22 05:30] LABS: HEMATOCRIT 24.9 % (33.0-50.0); HEMOGLOBIN 8.2 g/dL (11.0-16.0); MCH 30.8 pg (27.0-34.0); MCHC 32.9 gm/dL (32.0-36.5); MCV 93.6 fl (83.0-98.0); MPV 10.5 fl (9.4-12.4); RBC 2.66 M/uL (3.50-5.50); RDW-CV 14.4 % (11.9-14.6); WBC 3.1 K/uL (4.0-11.0)
[2016-08-22 05:33] LABS: PLATELET COUNT 76 K/uL (150-450)
[2016-08-22 06:12] LABS: ABSOLUTE NEUTROPHIL CT (ANC) 2.3 K/uL (1.4-9.0); BANDED NEUTROPHIL # 0.6 K/uL (0.0-0.1); BANDED NEUTROPHILS % 18 %; LYMPHOCYTE # 0.4 K/uL (0.8-4.0); LYMPHOCYTE % 14 %; MONOCYTE # 0.2 K/uL (0.0-1.0); SEGMENTED NEUTROPHIL # 1.7 K/uL (1.4-9.0); SEGMENTED NEUTROPHIL % 56 %
--- NOTE | 2016-08-22 15:50 | NUR ---
CHARLI Chilel identified that pt is medically cleared to discharge back to [facility] today. Also identified that he believes pt should go by ambulance. PAUL Momin gave him a ambulance cert form to fill out. Nurses to remove catheter, and ensure he voids before transfering Called pt's , Gabbie, at [phone] and informed her of plan to discharge, she requested that I call their daughter Magdalena. I called Magdalena at [phone]. and informed her of plan and that he will be going by ambulance. Told her we fill out a form that we believe it is medically necessary for him to transfer by ambulance, but it is not a guarantee that Medicare will cover it. Told I can call her back and inform her of time he will be leaving when I know. Called Radha at [facility] and updated her of discharge plan, she stated there is no problem with him returning today. Called Laurie at EMS and set up time for ambulance at 1230. Called Dr. Roque to inform him of patient's discharge to leave. 1150 Called Laurie to push back pick-up time to 1400 because pt had not urinated yet. Informed daughter Magdalena and Radha at [facility]. 1200 Faxed orders to [facility] at [phone]. Started packet. 1315 Call from Laurie to confirm garbage pick up man time was still in place. Returned to floor and discovered pt had not voided yet still. 1340 Pt still hadn't voided and called Laurie to cancel, told her he will not be leaving until tomorrow. [facility] is not able to take residents past 1500 to get medication. Updated daughter Radha Nichols at [facility], nurses, Dr. Roque, and Dr. Hill's CHARLI Muniz of plan to discharge tomorrow 08/23. 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
--- NOTE | 2016-08-22 20:00 | NUR ---
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 PLANING TO GO TO LONG TERM [facility]....HAD NORCO X2 LAST AT 1530...TAKES PILLS WHOLE... Follow up:
--- NOTE | 2016-08-23 04:26 | NUR ---
Significant Event: Dressing is clean, dry and intact. Patient voided. Refused Miralax, got an order for colace. Had a scant bowel movement. Repositioned. History of Parkinsons. Possilbe dismissal to [facility]. [place] at 0110. On 3 L of oxygen nasal cannula. Bilateral toes have numbness and tingling. Follow up:
--- NOTE | 2016-08-23 09:30 | NUR ---
exhibits coordinator from [facility] called about acute days. Wondered if there van couldn't come and get him. Spoke to their charge nurse and read thru therapy notes. Thought it would be fine and they will call me with a time. 944 Edith from [facility] called, will be here at [phone]. Told charge nurse Jessica, nurse Carvajal, patient, Dr. Roque, [facility] (they weren't needed anymore). 954 called patients daughter Magdalena. Gave nurse to nurse number to Alena. Orders faxed yesterday, Mya stated he didn't make changes just resigned. [place] P#[phone] and F#[phone]
--- NOTE | 2016-08-23 10:26 | NUR ---
PT ALERT BUT FORGETFUL AT TIMES. UP WITH 2 ASSIST WILL PIVOT TRANSFER BUT DOESNT TAKE STEPS WELL. VOIDS PER URINAL. BM YESTERDAY AND A SMALL IN THE NIGHT. NORCO GIVEN FOR PAIN AT 1000. TTWB TO LT LEG. MEPELIX DRESSING X 3 TO LT HIP AREA. PT ON 4 LPM/NC 02 . TRANSFER TODAY
--- NOTE | 2016-08-23 12:20 | NUR ---
PT DISCHARGEDS TO [facility] IN [place].
== END 2016-08-23 11:37 | DRG 481 ==
LOC: GACC 19:55 → GMSU 22:28 → GPCU 22:28 → G3N 22:28 → GPCU 08-19 10:58 → G3N 08-20 16:03
PROVIDERS: Emergency Medicine; Family Medicine; Physician Assistant Medical; ADMIT Internal Medicine
PROC: 0QS736Z Reposition Left Upper Femur with Intramedullary Internal Fixation Device, Percutaneous Approach (ICD-10-PCS; principal; 2016-08-19)
PROC: 30233N1 Transfusion of Nonautologous Red Blood Cells into Peripheral Vein, Percutaneous Approach (ICD-10-PCS; 2016-08-21)
DX: S72.142A Displaced intertrochanteric fracture of left femur, initial encounter for closed fracture (principal); J96.11 Chronic respiratory failure with hypoxia; E44.0 Moderate protein-calorie malnutrition; J96.12 Chronic respiratory failure with hypercapnia; G20 Parkinson's disease; I48.0 Paroxysmal atrial fibrillation; D69.6 Thrombocytopenia, unspecified; I10 Essential (primary) hypertension; D62 Acute posthemorrhagic anemia; W01.0XXA Fall on same level from slipping, tripping and stumbling without subsequent striking against object, initial encounter; E78.5 Hyperlipidemia, unspecified; M19.90 Unspecified osteoarthritis, unspecified site; I25.10 Atherosclerotic heart disease of native coronary artery without angina pectoris; Z95.1 Presence of aortocoronary bypass graft; Z95.5 Presence of coronary angioplasty implant and graft; Z87.891 Personal history of nicotine dependence; K21.9 Gastro-esophageal reflux disease without esophagitis; Z87.11 Personal history of peptic ulcer disease; J44.9 Chronic obstructive pulmonary disease, unspecified; Z68.20 Body mass index [BMI] 20.0-20.9, adult
CPT/HCPCS: C1713; J0282; J0690; J1170; J1650; J2270; J3010; J3475; J7030; J7042; J7050; J7060; J7612; P9016; P9045

== ENCOUNTER → 2016-08-18 | Outpatient (CLI) | payer MEDICARE, OTHER, MEDICAID ==
[~2016-08-18] MED LIST: ASPIRIN (CHILDR81 MG PO; BACTRIM 400-801 EACH PO; BETADINE1 EACH TOP; CALCIUM 500 +1 EAC1 PO; CEPACOL SORE T1 EAC1 PO; CHERRY PO; CYMBALTA30 MG PO; CYMBALTA60 MG PO; DURAGESIC1 EAC1 TOP; FEOSOL325 MG PO; FLONASE 50 MCG/16 GM NOSE; HUMIBID LA (MU600 MG PO; IMODIUM2 MG PO; K-TAB ER20 MEQ PO; LEXAPRO10 MG PO; MAALOX LIQ UNIT30 ML PO; MILK OF MA400 MG/5 M PO; OXYGEN INH; OXYGEN M-15 INH; PERCOCET 5-3251 EACH PO; PHENERGAN25 M1 PO; PRILOSEC20 M1 PO; PRILOSEC20 MG PO; PROTONIX40 MG PO; RAPAFLO8 MG PO; REQUIP2 MG PO; SALINE NASAL SP88 ML NOSE; SINEMET 25-1001 EACH PO; SM SENNA-S TAB1 EACH PO; SUDAFED30 MG PO; THERA-VITE W/ B1 TAB PO; TRIAMCINOLONE A15 G2 TOP; TYLENOL325 MG PO; VOLTAREN 1% GE100 GM TOP; ZOFRAN4 MG PO; ZYLOPRIM100 MG PO; ZYRTEC10 M1 PO
== END | disposition disaster alternative care site (69) ==
LOC: GAMB 19:32
DX: S79.912A Unspecified injury of left hip, initial encounter (principal); M25.512 Pain in left shoulder; M25.552 Pain in left hip; X58.XXXA Exposure to other specified factors, initial encounter
CPT/HCPCS: J3010